=== PATIENT | female | born 1970 | race Asian ===

== ENCOUNTER → 2018-06-13 | Outpatient (REF) | LOC: EH 14:59 ==

== ENCOUNTER 2020-02-16 16:26 | Emergency (ER) | payer OTHER ==
[~2020-02-16] VITALS: Ht 157.5 cm; Wt 53.5 kg
[2020-02-16 16:28] VITALS: Ht 157.5 cm; Wt 53.5 kg
[2020-02-16 18:28] LABS: BASOPHIL % 0.8 % (0-2); PLATELET COUNT 295 x10^3mcL (130-400); RED CELL DISTRIBUTION WIDTH 14.1 % (11.5-14.5)
[2020-02-16 18:41] LABS: CALCIUM 8.9 mg/dL (8.5-10.1); CARBON DIOXIDE 30.1 mmol/L (21-32); CHLORIDE SERUM 107 mmol/L (98-107); CREATININE SERUM 0.7 mg/dL (0.6-1.0); GFR1 > 60 mL/min; GLUCOSE SERUM 106 mg/dL (74-106); SODIUM SERUM 142 mmol/L (136-145)
[2020-02-16 18:45] LABS: ALBUMIN 4.1 g/dL (3.4-5.0); ALKALINE PHOSPHATASE 39 U/L (46-116); ALT/SGPT 15 U/L (14-59); AST/SGOT 13 U/L (15-37); BILIRUBIN TOTAL 0.3 mg/dL (0.20-1.00); TOTAL PROTEIN, SERUM 7.1 g/dL (6.4-8.2)
[2020-02-16 20:50] VITALS: BP 111/78
== END 2020-02-16 20:50 | disposition home or self-care (01) ==
LOC: ED 16:26
PROVIDERS: Emergency Medicine
DX: M54.6 Pain in thoracic spine (principal); F10.129 Alcohol abuse with intoxication, unspecified; Z71.6 Tobacco abuse counseling; Z90.710 Acquired absence of both cervix and uterus
CPT/HCPCS: 83880; 85378; 99406; J1885